=== PATIENT | female | born 1990 | race African-American/Black ===

== ENCOUNTER 2016-11-22 16:29 | Emergency (ER) | payer SELFPAY ==
[~2016-11-22] VITALS: Ht 157.5 cm; Wt 77.1 kg
[2016-11-22 17:00] VITALS: BP 130/76
--- NOTE | 2016-11-22 17:28 | PHYS DOC ---
Past Medical History Past Medical History: No Pertinent History Past Surgical History: Alcohol Use: None Drug Use: None Adult General Chief Complaint Chief Complaint: COUGH [facility] HPI Patient is a 25 year old female presents to the emergency department stating that she has been having a cough with nasal congestion mainly at night when she is trying to lay down to sleep. She states that she's been using Tessalon Perles to help with cough and which this has had no relief. Patient states on Sunday she had a fever of 102. She did take Tylenol or ibuprofen for the discomfort at that time. She states that she has also been having urinary frequency urgency and pain with urination. She denies any vaginal discharge. Review of Systems Review of Systems Constitutional: Subjective fever on Sunday. Eyes: Denies change in visual acuity, redness, or eye pain [] HENT: Nasal congestion denies sore throat Respiratory: Cough denies any shortness of air Cardiovascular: No additional information not addressed in HPI [] GI: Denies abdominal pain, nausea, vomiting, bloody stools or diarrhea [] : Denies dysuria or hematuria [] Musculoskeletal: Denies back pain or joint pain [] Integument: Denies rash or skin lesions [] Neurologic: Denies headache, focal weakness or sensory changes [] Endocrine: Denies polyuria or polydipsia [] Allergies Allergies Allergies Coded Allergies Type Severity Reaction Last Updated Verified No Known Drug Allergies 08/28/14 No Physical Exam Physical Exam Constitutional: Well developed, well nourished, no acute distress, non-toxic appearance. [] HENT: Normocephalic, atraumatic, bilateral external ears normal, oropharynx moist, no oral exudates, nose normal. Bilateral tympanic membranes appear to normal. Patient does have cerumen noted in the ear canals. Throat appears to have enlarged tonsils with no uvula deviation noted. No exudate noted no erythematous noted. Eyes: PERRLA, EOMI, conjunctiva normal, no discharge. [] Neck: Normal range of motion, no tenderness, supple, no stridor. [] Cardiovascular:Heart rate regular rhythm, no murmur [] Lungs & Thorax: Bilateral breath sounds clear to auscultation [] Skin: Warm, dry, no erythema, no rash. [] Back: No tenderness Extremities: No tenderness, no cyanosis, no clubbing, ROM intact, no edema. [] Neurologic: Alert and oriented X 3, normal motor function, normal sensory function, no focal deficits noted. [] Psychologic: Affect normal, judgement normal, mood normal. [] Current Patient Data Vital Signs Vital Signs Date Time Temp Pulse Resp B/P (MAP) Pulse Ox O2 Delivery O2 Flow Rate FiO2 11/22/16 17:00 98.0 59 16 100 Room Air 98.0 Lab Values Laboratory Tests Test 11/22/16 16:36 11/22/16 17:00 POC Urine HCG, Qualitative Hcg negative (Negative) Urine Collection Type Unknown Urine Color Yellow Urine Clarity Cloudy Urine pH 8.5 Urine Specific [place] 1.025 Urine Protein 30 mg/dL (NEG-TRACE) Urine Glucose (UA) Negative mg/dL (NEG) Urine Ketones (Stick) Negative mg/dL (NEG) Urine Blood Small (NEG) Urine Nitrite Negative (NEG) Urine Bilirubin Negative (NEG) Urine Urobilinogen Dipstick 0.2 mg/dL (0.2 mg/dL) Urine Leukocyte Esterase Moderate (NEG) Urine RBC 20-40 /HPF (0-2) Urine WBC >40 /HPF (0-4) Urine Squamous Epithelial Cells Few /LPF Urine Bacteria Few /HPF (0-FEW) Urine Mucus Marked /LPF EKG EKG [] Radiology/Procedures Radiology/Procedures [] Course & Med Decision Making Course & Med Decision Making Pertinent Labs and Imaging studies reviewed. (See chart for details) After talking with the patient regards to using Mucinex DM [id number] for cough and nasal congestion patient states that all I had been taking Mucinex DM as well as Benadryl. Patient states these medications have not been helping at all. Patient's urine was positive for urinary tract infection. Patient will be placed on Keflex 500 mg twice a day for the next 10 days. Recommended plenty of fluids such as water and cranberry juice. Also recommended avoiding cranberry juice cocktail, pending beverages, citrus fruits and alcohol seizure considered irritants to the bladder. Also continue to recommend Mucinex DM for her cough and congestion. Also recommended her following up to primary care physician in 7 -10 days to make sure she is cleared the urinary tract infections. Patient was provided with signs and symptoms to return back to the emergency department. Patient will be discharged home in stable condition. [] Dragon Disclaimer Dragon Disclaimer This electronic medical record was generated, in whole or in part, using a voice recognition dictation system. Departure Departure Impression: Primary Impression: Urinary tract infection Additional Impression: Upper respiratory infection Disposition: 01 HOME, SELF-CARE Condition: STABLE Referrals: NO PCP (PCP) Patient Instructions: Upper Respiratory Infection, Adult, [id number], Urinary Tract Infection, [id number] Additional Instructions: Your urine was positive for urinary tract infection. Medications as prescribed. Mucinex DM [id number] for your cough and congestion. Take as directed by retail warehouse supervisor. Drink plenty of fluids such as water and cranberry juice. Avoid cranberry juice cocktail, carbonated beverages, citrus fruits and alcohol as these are considered irritants to the bladder. Follow-up with your primary care physician in the next 7-10 days to make sure you cleared the urinary tract infection. Return back to emergency department for signs and symptoms of become worse. Scripts Cephalexin (CEPHALEXIN) 500 Mg Tablet 1 TAB PO BID, #20 TAB Prov: COREEN HERNANDEZ APRN 11/22/16 Problem Qualifiers COREEN HERNANDEZ APRN Nov 22, 2016 17:28
[2016-11-22 17:33] LABS: BILIRUBIN,URINE NEGATIVE (NEG); GLUCOSE,URINE NEGATIVE (NEG); NITRITE,URINE NEGATIVE (NEG); PH,URINE 8.5; PROTEIN,URINE 30 mg/dL (NEG-TRACE); UROBILINOGEN,URINE 0.2 mg/dL (0.2 mg/dL)
[2016-11-22 17:42] LABS: BACTERIA,URINE FEW /HPF (0-FEW); RBC,URINE 20-40 /HPF (0-2); SQUAMOUS EPITHELIAL CELL,UR FEW /LPF; WBC,URINE >40 /HPF (0-4)
[2016-11-22] MEDS ORDERED: CEPH500T PO (18:00)
== END 2016-11-22 18:08 | disposition home or self-care (01) ==
LOC: ER 16:29
DX: J06.9 Acute upper respiratory infection, unspecified (principal); N39.0 Urinary tract infection, site not specified; Z98.890 Other specified postprocedural states
CPT/HCPCS: 81001; 81025; 87086; 87186; 99284

== ENCOUNTER 2018-09-23 19:44 | Emergency (ER) | payer SELFPAY ==
[~2018-09-23] VITALS: Ht 157.5 cm; Wt 79.4 kg
[~2018-09-23 19:44] MED LIST: CEPH500T PO
[2018-09-23 19:59] VITALS: BP 124/89
[2018-09-23 20:20] LABS: BILIRUBIN,URINE NEGATIVE (NEG); CLARITY,URINE CLEAR; COLOR,URINE YELLOW; NITRITE,URINE NEGATIVE (NEG); PROTEIN,URINE NEGATIVE (NEG-TRACE); UROBILINOGEN,URINE 0.2 mg/dL (0.2 mg/dL)
[2018-09-23 20:29] LABS: BACTERIA,URINE FEW /HPF (0-FEW); SQUAMOUS EPITHELIAL CELL,UR OCC /LPF; TRICHOMONAS,URINE PRESENT
[2018-09-23] MEDS ORDERED: METR-34 PO (20:44)
[2018-09-23] MEDS ORDERED: cefTRIAXone IM 250 MG VIAL IM ONE (20:45)
[2018-09-23] MEDS ORDERED: AZITHROMYCIN 250 MG TABLET. PO ONE (20:45)
--- NOTE | 2018-09-23 20:45 | PHYS DOC ---
Past Medical History Past Medical History: No Pertinent History (ALEXANDER DIXON APRN) Past Surgical History: (ALEXANDER DIXON APRN) Alcohol Use: Occasionally Drug Use: Marijuana (ALEXANDER DIXON APRN) Adult General Chief Complaint Chief Complaint: PELVIC PAIN HPI HPI Patient is a 27 year old female presents for evaluation of pelvic pain, dysuria, and vaginal discharge. She reports symptoms been ongoing for a couple of days. Last menstrual cycle was last . She is unsure if she is or not. She has an Implanon in the left arm, it was placed in 2008. (ALEXANDER DIXON APRN) Review of Systems Review of Systems Constitutional: Denies fever or chills [] Eyes: Denies change in visual acuity, redness, or eye pain [] HENT: Denies nasal congestion or sore throat [] Respiratory: Denies cough or shortness of breath [] Cardiovascular: No additional information not addressed in HPI [] GI: Denies abdominal pain, nausea, vomiting, bloody stools or diarrhea [] : Reports dysuria, vaginal discharge, pelvic pain[] Musculoskeletal: Denies back pain or joint pain [] Integument: Denies rash or skin lesions [] Neurologic: Denies headache, focal weakness or sensory changes [] Endocrine: Denies polyuria or polydipsia [] All other systems were reviewed and found to be within normal limits, except as documented in this note. (ALEXANDER DIXON APRN) Current Medications Current Medications Current Medications Medications (Trade) Dose Ordered Sig/Heaven Start Time Stop Time Status Last Admin Dose Admin Azithromycin (Zithromax) 1,000 mg 1X ONCE 09/23/18 20:45 09/23/18 20:46 DC 09/23/18 21:12 1,000 MG Ceftriaxone Sodium (Rocephin Im) 250 mg 1X ONCE 09/23/18 20:45 09/23/18 20:46 DC 09/23/18 21:12 250 MG (NEEL AUGUSTINE MD) Allergies Allergies Allergies Coded Allergies Type Severity Reaction Last Updated Verified No Known Drug Allergies 08/28/14 No (NEEL AUGUSTINE MD) Physical Exam Physical Exam Constitutional: Well developed, well nourished, no acute distress, non-toxic appearance. [] Cardiovascular:Heart rate regular rhythm, no murmur [] Lungs & Thorax: Bilateral breath sounds clear to auscultation [] Abdomen: Bowel sounds normal, soft, no tenderness, no masses, no pulsatile masses, suprapubic tenderness to palpation. [] : Thick white vaginal discharge, os closed, no bleeding, no lesions, no adnexal tenderness, no cervical motion tenderness Skin: Warm, dry, no erythema, no rash. [] Back: No tenderness, no CVA tenderness. [] Extremities: No tenderness, no cyanosis, no clubbing, ROM intact, no edema. [] Neurologic: Alert and oriented X 3, normal motor function, normal sensory function, no focal deficits noted. [] Psychologic: Affect normal, judgement normal, mood normal. [] (ALEXANDER DIXON APRN) Current Patient Data Vital Signs Vital Signs Date Time Temp Pulse Resp B/P (MAP) Pulse Ox O2 Delivery O2 Flow Rate FiO2 09/23/18 19:59 98.3 84 16 124/89 (101) 99 Room Air 98.3 (NEEL AUGUSTINE MD) Lab Values Laboratory Tests Test 09/23/18 20:01 09/23/18 20:06 Urine Color Yellow Urine Clarity Clear Urine pH 7.0 Urine Specific [place] 1.015 Urine Protein Negative mg/dL (NEG-TRACE) Urine Glucose (UA) Negative mg/dL (NEG) Urine Ketones (Stick) Negative mg/dL (NEG) Urine Blood Small (NEG) Urine Nitrite Negative (NEG) Urine Bilirubin Negative (NEG) Urine Urobilinogen Dipstick 0.2 mg/dL (0.2 mg/dL) Urine Leukocyte Esterase Moderate (NEG) Urine RBC 1-2 /HPF (0-2) Urine WBC 5-10 /HPF (0-4) Urine Squamous Epithelial Cells Occ /LPF Urine Bacteria Few /HPF (0-FEW) Urine Mucus Slight /LPF Urine Trichomonas Present POC Urine HCG, Qualitative Hcg negative (Negative) Microbiology 09/23/18 Wet Prep - Final, Complete (NEEL AUGUSTINE MD) EKG EKG [] (ALEXANDER DIXON APRN) Radiology/Procedures Radiology/Procedures [] (ALEXANDER DIXON APRN) Course & Med Decision Making Course & Med Decision Making Pertinent Labs and Imaging studies reviewed. (See chart for details) [She treated prophylactically for gonorrhea and chlamydia while in emergency r oom tonight. Urine sample was positive for Trichomonas. Prescription provided with discharge instructions.] (ALEXANDER DIXON APRN) Course & Med Decision Making Staff Physician Addendum: I was working in the ER during the course of this patient's visit. I was available for consultation as needed, but I was not directly involved in the care of this patient. (NEEL AUGUSTINE MD) Dragon Disclaimer Dragon Disclaimer This electronic medical record was generated, in whole or in part, using a voice recognition dictation system. (ALEXANDER DIXON APRN) Departure Departure Impression: Primary Impression: Trichomoniasis of vagina Additional Impression: Pelvic pain Disposition: 01 HOME, SELF-CARE Condition: STABLE Referrals: NO PCP (PCP) Patient Instructions: Pelvic Pain, Female, Trichomoniasis Scripts Metronidazole (METRONIDAZOLE) 500 Mg Tablet 1 TAB PO BID, #14 TAB Prov: ALEXANDER DIXON APRN 09/23/18 Problem Qualifiers ALEXANDER DIXON APRN Sep 23, 2018 20:45 NEEL AUGUSTINE MD Sep 24, 2018 04:24
[2018-09-25 13:18] LABS: GC PROBE Negative (Negative)
--- NOTE | 2018-09-27 08:40 | VNOTE ---
CALL BACK NOTE CALL BACK Microbiology 09/23/18 Wet Prep - Final, Complete 09/23/18 Urine Culture - Final, Complete 09/23/18 Urine Culture Result 1 (MIKEY) - Final, Complete 09/23/18 Urine Culture Result 2 (MIKEY) - Final, Complete 09/23/18 Antimicrobic Susceptibility - Final, Complete callere regarding lab results/urine culture. No. not going through MAGALIE ROSS APRN Sep 27, 2018 08:40
== END 2018-09-23 21:16 | disposition home or self-care (01) ==
LOC: ER 19:44
DX: A59.01 Trichomonal vulvovaginitis (principal); Z98.890 Other specified postprocedural states
CPT/HCPCS: 81001; 81025; 87086; 87491; 87591; 96372; 99284; J0696; Q0111; Q0144; 87186